=== PATIENT | female | born 2000 | race African-American/Black ===

== ENCOUNTER 2021-08-17 21:06 | Observation (INO) ==
[2021-08-17] MEDS ORDERED: SODIUM CHLORIDE 0.9% 1,000 ML IV STA (22:37)
[2021-08-17] MEDS ORDERED: ONDANSETRON 4 MG/2 ML VIAL IV STA (22:37)
[2021-08-17] MEDS ORDERED: ACETAMINOPHEN 325 MG TABLET PO ONE (22:39)
[2021-08-17] MEDS ORDERED: ONDANSETRON 4 MG/2 ML VIAL ONE (22:45)
[2021-08-17] MEDS ORDERED: ACETAMINOPHEN 325 MG TABLET ONE (22:45)
[2021-08-17 23:17] LABS: Basophils # 0.1 10*3/uL (0.0-0.2); Basophils % 0.4 % (0.0-0.8); Eosinophils # 0.1 10*3/uL (0.0-0.87); Eosinophils % 0.4 % (0.00-10.9); Hematocrit 30.8 VOL% (35.7-47.0); Immature Granulocytes % 0.5 %; Immature Granulocytes Absolute 0.07 #; Lymphocytes % 22.3 % (21.3-54.2); Mean Corpuscular HGB Conc 35.7 GM/DL (32-36); Mean Corpuscular Volume 91.1 FL (87-102); Mean Platelet Volume 10.5 FL (9.6-12.0); Monocytes % 4.2 % (1.7-12.7); Neutrophils % 72.2 % (38.7-73.9); Platelet Count 277 T/CUMM (130-400); Red Blood Count 3.38 MC/CUMM (3.8-5.5); Red Cell Distribution Width 18.5 % (9.3-17.3); White Blood Count 13.2 T/CUMM (4-12)
[2021-08-17 23:36] LABS: Albumin 4.3 G/DL (3.4-5.0); Bilirubin,Total 8.9 MG/DL (0.20-1.00); Osmolality,Calculated 266.1 MOS/KG (273-304); Potassium 3.4 MMOL/L (3.5-5.1); Total Protein 8.1 G/DL (6.4-8.2)
[2021-08-18] MEDS ORDERED: ONDANSETRON 4 MG/2 ML VIAL IV ONE (00:15)
[2021-08-18] MEDS ORDERED: POTASSIUM CHLORIDE 20 MEQ TABLET PO STA (00:17)
[2021-08-18] MEDS: DEXTROSE 5% LACTATED RINGERS 1,000 ML IV SCH ×2 (00:37→17:55)
[2021-08-18] MEDS ORDERED: ONDANSETRON 4 MG/2 ML VIAL ONE (00:39)
[2021-08-18] MEDS ORDERED: POTASSIUM CHLORIDE 20 MEQ TABLET PO ONE (00:39)
[2021-08-18] MEDS ORDERED: methylPREDNISolone SOD SUC 125 MG/2 ML VIAL IV STA (01:13)
[2021-08-18] MEDS ORDERED: MORPHINE 2 MG/1 ML SYRINGE IV STA (01:14)
[2021-08-18 01:28] LABS: Bilirubin,Urine Negative (Negative); Blood, Urine Negative (Negative); Glucose,Urine (UA) Negative (Negative); Ketones,Urine 20 mg/dL (Negative); Mucus,Urine Many /LPF (Occasional); Nitrite,Urine Negative (Negative); Protein,Urine Negative; Squamous Epithelial Cell,Urine Few /HPF (0-10); Urine Appearance Slightly Hazy (Clear); Urine Color Amber (Yellow); Urine Specific Gravity 1.028 (1.001-1.035)
[2021-08-18 01:59] LABS: RBC Wet Mount FEW /HPF; WBC Wet Mount Moderate /HPF
[2021-08-18 02:00] LABS: Bacteria Wet Mount FEW /HPF; Clue Cells FEW /HPF (None Seen); Epithelial Cell Wet Mount MANY /HPF (Few/HPF); Trichomonas Wet Mount None Seen /HPF (None Seen); Yeast Wet Mount None Seen /HPF (None Seen)
[2021-08-18] MEDS ORDERED: MORPHINE 2 MG/1 ML SYRINGE ONE (02:01)
[2021-08-18] MEDS ORDERED: methylPREDNISolone SOD SUC 125 MG/2 ML VIAL ONE (02:01)
[2021-08-18] MEDS ORDERED: cefTRIAXone 1,000 MG VIAL ONE (02:02)
[2021-08-18] MEDS ORDERED: SODIUM CHLORIDE 0.9% 100 ML IV ONE (02:02)
[2021-08-18] MEDS ORDERED: cefTRIAXone 1,000 MG in SODIUM CHLORIDE 0.9% 100 ML IV STA (02:05)
[2021-08-18] MEDS: POTASSIUM CHLORIDE INJ 40 MEQ in LACTATED RINGERS 1,000 ML IV SCH ×4 (02:59→22:12)
[2021-08-18] MEDS ORDERED: ACETAMINOPHEN 325 MG TABLET PO PRN (04:14)
[2021-08-18] MEDS ORDERED: ONDANSETRON 4 MG/2 ML VIAL IV PRN (04:14)
[2021-08-18] MEDS: PHENAZOPYRIDINE 95 MG TABLET PO SCH ×2 (09:16→16:41)
[2021-08-18] MEDS ORDERED: MULTIVITAMIN INJ 10 ML in DEXTROSE 5% NACL 0.45% 1,000 ML IV SCH (11:00)
[2021-08-18] MEDS: ONDANSETRON 4 MG/2 ML VIAL IV PRN ×2 (12:27→18:31)
[2021-08-18] MEDS ORDERED: DOCUSATE SODIUM 100 MG CAPSULE PO PRN (20:33)
[2021-08-18] MEDS ORDERED: BISACODYL 10 MG SUPP RECTAL ONE (21:04)
[2021-08-19] MEDS ORDERED: PROMETHAZINE 25 MG SUPP RECTAL PRN (00:08)
[2021-08-19] MEDS ORDERED: PROMETHAZINE 12.5 MG SUPP RECTAL PRN (00:20)
[2021-08-19] MEDS: DEXTROSE 5% LACTATED RINGERS 1,000 ML IV SCH ×3 (02:07→17:36)
[2021-08-19] MEDS: cefTRIAXone 1,000 MG in SODIUM CHLORIDE 0.9% 100 ML IV SCH (02:08)
[2021-08-19] MEDS: PHENAZOPYRIDINE 95 MG TABLET PO SCH ×2 (09:55→17:14)
[2021-08-19] MEDS: POTASSIUM BICARB EFFERVESCENT 20 MEQ TAB.EFF PO SCH ×4 (11:41→17:34)
[2021-08-19] MEDS: ONDANSETRON 4 MG/2 ML VIAL IV PRN (19:45)
[2021-08-19] MEDS ORDERED: ALUMINUM/MAGNES/SIMETH MAX STR 30 ML UDCUP PO PRN (19:54)
[2021-08-19] MEDS ORDERED: METOCLOPRAMIDE 10 MG/2 ML VIAL IV PRN (23:15)
[2021-08-20] MEDS: cefTRIAXone 1,000 MG in SODIUM CHLORIDE 0.9% 100 ML IV SCH (01:15)
[2021-08-20] MEDS: PHENAZOPYRIDINE 95 MG TABLET PO SCH (08:48)
[2021-08-20] MEDS ORDERED: PANTOPRAZOLE 40 MG VIAL IV SCH (09:00)
[2021-08-20 12:22] VITALS: BP 93/43
== END 2021-08-20 13:50 | disposition home or self-care (01) ==
LOC: N.EDINP 21:06 → N.ED 21:06 → N.OB 08-18 03:55 → N.EDINP 08-18 03:55 → N.LD 08-18 17:15 → N.OB 08-19 10:05
PROVIDERS: ADMIT Obstetrics & Gynecology; ATTEND Obstetrics & Gynecology

== ENCOUNTER 2022-03-05 05:36 | Inpatient (IN) ==
[2022-03-05] MEDS ORDERED: MEPERIDINE 50 MG/1 ML VIAL IV PRN (05:44)
[2022-03-05] MEDS ORDERED: LIDOCAINE 1% 50 ML VIAL MISC INJ ONE (05:44)
[2022-03-05] MEDS ORDERED: ACETAMINOPHEN 325 MG TABLET PO PRN ×2 (05:44→18:03)
[2022-03-05] MEDS ORDERED: METHYLERGONOVINE 0.2 MG/1 ML AMP IM PRN (05:44)
[2022-03-05] MEDS ORDERED: BUTORPHANOL 2 MG/ML VIAL IV PRN (05:44)
[2022-03-05] MEDS ORDERED: OXYTOCIN/LR 20 UNIT/1,000 ML BAG IV ONE ×2 (05:44→18:03)
[2022-03-05] MEDS ORDERED: ONDANSETRON 4 MG/2 ML VIAL IV PRN ×2 (05:44→18:03)
[2022-03-05] MEDS ORDERED: miSOPROStoL 200 MCG TABLET RECTAL PRN (05:44)
[2022-03-05] MEDS ORDERED: CARBOPROST TROMETHAMINE 250 MCG/ML AMP IM PRN (05:44)
[2022-03-05] MEDS ORDERED: TRANEXAMIC ACID 1,000 MG in SODIUM CHLORIDE 0.9% 100 ML IV PRN (05:44)
[2022-03-05] MEDS ORDERED: OXYTOCIN/LR 20 UNIT/1,000 ML BAG IV SCH (06:00)
[2022-03-05] MEDS: LACTATED RINGERS 1,000 ML IV SCH ×3 (06:07→18:31)
[2022-03-05 06:46] LABS: Amorphous Crystals,Urine Occasional /HPF (Few); Calcium Oxalate Crystals,Urine Few /HPF (Few); Mucus,Urine Occasional /LPF (Occasional); RBC,Urine 2 /HPF (0-4); Squamous Epithelial Cell,Urine Occasional /HPF (0-10)
[2022-03-05 06:47] LABS: Bilirubin,Urine Small mg/dL (Negative); Blood, Urine Negative (Negative); Glucose,Urine (UA) Negative (Negative); Ketones,Urine Negative (Negative); Nitrite,Urine Positive (Negative); Protein,Urine Negative (Negative); Urine Appearance Clear (Clear); Urine Color Dark yellow (Yellow); Urine Specific Gravity > 1.030 (1.001-1.035)
[2022-03-05 06:53] LABS: Basophils # 0.1 10*3/uL (0.0-0.2); Basophils % 0.4 % (0.0-0.8); Eosinophils # 0.1 10*3/uL (0.0-0.87); Eosinophils % 0.3 % (0.00-10.9); Hematocrit 28.8 VOL% (35.7-47.0); Hemoglobin 10.3 GM/DL (12.0-16.0); Immature Granulocytes % 1.4 %; Immature Granulocytes Absolute 0.24 #; Lymphocytes # 3.4 10*3/uL (1.4-4.0); Lymphocytes % 19.6 % (21.3-54.2); Mean Corpuscular HGB Conc 35.8 GM/DL (32-36); Mean Corpuscular Volume 103.6 FL (87-102); Mean Platelet Volume 10.4 FL (9.6-12.0); Monocytes # 1.7 10*3/uL (0.11-0.8); Monocytes % 9.6 % (1.7-12.7); NRBC # 0.19 10*3/uL; Neutrophils % 68.7 % (38.7-73.9); Platelet Count 242 T/CUMM (130-400); Red Blood Count 2.78 MC/CUMM (3.8-5.5); Red Cell Distribution Width 19.5 % (9.3-17.3); White Blood Count 17.1 T/CUMM (4-12)
[2022-03-05 08:36] LABS: Albumin 3.2 G/DL (3.4-5.0); Bilirubin,Total 3.7 MG/DL (0.20-1.00); Calcium 8.9 MG/DL (8.5-10.1); Osmolality,Calculated 271.7 MOS/KG (273-304); Total Protein 6.7 G/DL (6.4-8.2)
[2022-03-05 14:39] LABS: Cord Arterial Blood HCO3 20.6 MMOL/L
[2022-03-05 14:42] LABS: Cord Venous Blood HCO3 21.9 MMOL/L; Cord Venous Blood PCO2 41.5 MMHG; Cord Venous Blood PO2 22.8
[2022-03-05] MEDS ORDERED: LANOLIN 50% CREAM 0.3 OZ TUBE TOP PRN (18:03)
[2022-03-05] MEDS ORDERED: RHO(D) IMMUNE GLOBULIN 300 MCG SYRINGE IM ONE (18:03)
[2022-03-05] MEDS ORDERED: oxyCODONE/ACETAMINOPHEN 5-325 MG TABLET PO PRN ×2 (18:03)
[2022-03-05] MEDS ORDERED: WITCH HAZEL PADS 100/JAR TOP PRN (18:03)
[2022-03-05] MEDS ORDERED: DIPH/TET/ACEL PERT BOOSTER VACCINE 0.5 ML VIAL IM ONE (18:03)
[2022-03-05] MEDS ORDERED: BENZOCAINE 20%/MENTHOL 0.5% SPRAY 56 GM CAN TOP PRN (18:03)
[2022-03-05] MEDS ORDERED: MEASLES/MUMPS/RUBELLA VACCINE 0.5 ML VIAL SUBCUT ONE (18:03)
[2022-03-05] MEDS ORDERED: HYDROCORTISONE 2.5% RECTAL CREAM 30 GM TUBE TOP PRN (18:03)
[2022-03-05] MEDS ORDERED: BISACODYL 10 MG SUPP RECTAL PRN (18:03)
[2022-03-05] MEDS: IBUPROFEN 800 MG TABLET PO PRN (20:53)
[2022-03-05] MEDS: DOCUSATE SODIUM 100 MG CAPSULE PO SCH (20:58)
[2022-03-06 05:34] LABS: Basophils # 0.1 10*3/uL (0.0-0.2); Basophils % 0.3 % (0.0-0.8); Eosinophils % 0.2 % (0.00-10.9); Hematocrit 27.1 VOL% (35.7-47.0); Hemoglobin 9.6 GM/DL (12.0-16.0); Immature Granulocytes % 1.3 %; Immature Granulocytes Absolute 0.23 #; Lymphocytes # 2.7 10*3/uL (1.4-4.0); Lymphocytes % 15.1 % (21.3-54.2); Mean Corpuscular HGB Conc 35.4 GM/DL (32-36); Mean Corpuscular Volume 104.2 FL (87-102); Mean Platelet Volume 10.4 FL (9.6-12.0); Monocytes # 1.4 10*3/uL (0.11-0.8); Monocytes % 7.9 % (1.7-12.7); Neutrophils % 75.2 % (38.7-73.9); Platelet Count 211 T/CUMM (130-400); White Blood Count 17.9 T/CUMM (4-12)
[2022-03-06] MEDS: DOCUSATE SODIUM 100 MG CAPSULE PO SCH ×2 (09:44→21:28)
[2022-03-06] MEDS: MULTIVITAMIN (PRENATAL) TABLET PO SCH (09:44)
[2022-03-06] MEDS: IBUPROFEN 800 MG TABLET PO PRN (10:31)
[2022-03-07] MEDS: IBUPROFEN 800 MG TABLET PO PRN (03:37)
[2022-03-07 07:26] VITALS: BP 92/47
[2022-03-07] MEDS: DOCUSATE SODIUM 100 MG CAPSULE PO SCH (08:44)
[2022-03-07] MEDS: MULTIVITAMIN (PRENATAL) TABLET PO SCH (08:44)
[2022-03-07] MEDS ORDERED: DIPH/TET/ACEL PERT BOOSTER VACCINE 0.5 ML VIAL IM ONE (10:30)
== END 2022-03-07 13:30 | disposition home or self-care (01) | DRG 560 ==
LOC: N.LD 05:36 → N.OB 17:38
PROVIDERS: ADMIT Specialist; ATTEND Specialist